=== PATIENT | male | born 1960 | race Caucasian/White ===

== ENCOUNTER 2021-02-10 21:09 | Observation (INO) ==
[2021-02-11] MEDS ORDERED: Acetaminophen 325 MG TABLET PO PRN (01:51)
[2021-02-11] MEDS ORDERED: Ondansetron 4 MG/2 ML VIAL IVP PRN (01:51)
[2021-02-11] MEDS ORDERED: Naloxone 0.4 MG/ML INJ IVP PRN (01:51)
[2021-02-11] MEDS ORDERED: Melatonin 3 MG TABLET PO PRN (01:51)
[2021-02-11] MEDS ORDERED: Pantoprazole 40 MG VIAL IVP ONE (01:53)
[2021-02-11] MEDS ORDERED: Furosemide 20 MG/2 ML VIAL IVP ONE (01:53)
[2021-02-11] MEDS ORDERED: *HR* Dextrose 50 % in Water (Vial) 50 ML VIAL IVP PRN (01:58)
[2021-02-11] MEDS ORDERED: Dextrose Gel 15 GM/37.5 ML TUBE PO PRN ×2 (01:58)
[2021-02-11] MEDS ORDERED: D5% in Water 1,000 ML IVC PRN (01:58)
[2021-02-11] MEDS ORDERED: 0.9 % Sodium Chloride 250 ML IVC SCH (02:00)
[2021-02-11 02:56] LABS: Basophils % 0.3 %; Eosinophils # 0.1 K/mcL (0.0-0.6); Eosinophils % 3.4 %; Hematocrit 22.1 % (37.5-50.1); Hemoglobin 6.8 g/dL (12.9-16.9); Immature Granulocytes % 0.3 % (0-4); Lymphocytes # 0.9 K/mcL (0.6-4.6); Lymphocytes % 25.9 %; Mean Corpuscular HGB Conc 30.8 g/dL (31.6-35.5); Mean Corpuscular Hemoglobin 31.1 pg (28.0-33.3); Mean Corpuscular Volume 100.9 fL (83.0-100.0); Mean Platelet Volume 9.4 fL (9.4-12.4); Monocytes # 0.4 K/mcL (0.0-1.3); Monocytes % 11.7 %; Neutrophils # 2.1 K/mcL (1.6-8.9); Platelet Count 150 K/mcL (140-400); Red Blood Count 2.19 M/mcL (4.19-5.50); Red Cell Distribution Width 15.3 % (11.5-14.5); Segmented Neutrophils % 58.4 %; White Blood Count 3.5 K/mcL (4.3-11.1)
[2021-02-11 02:58] LABS: Immature Reticulocyte % 29.2 % (11.0-38.0); Retculocyte # 0.15 M/mcL (0.05-0.10); Reticulocyte % 6.9 % (1.6-2.8)
[2021-02-11 03:11] LABS: Prothrombin Time 11.8 Seconds (9.4-12.1)
[2021-02-11 03:20] LABS: Albumin 2.9 g/dL (3.5-5.7); Albumin/Globulin Ratio 0.9 (1.1-2.2); Bilirubin,Total 0.6 mg/dL (0.3-1.0); Calcium 8.2 mg/dL (8.6-10.3); Globulin 3.3 g/dL (2.4-3.5); Magnesium 2.1 mg/dL (1.6-2.6); Potassium 4.2 mEq/L (3.5-5.1); Total Protein 6.2 g/dL (6.4-8.9)
[2021-02-11 03:40] LABS: Folate 8.1 ng/mL (3.0-16.0)
[2021-02-11] MEDS ORDERED: Cyanocobalamin (B-12) 1,000 MCG/ML VIAL SQ ONE (05:34)
[2021-02-11 06:04] LABS: Bilirubin,Urine Negative (Negative); Blood,Urine Trace (Negative); Clarity,Urine Clear (Clear); Color,Urine Colorless (Yellow); Glucose,Urine (UA) Normal (Normal); Ketones,Urine Negative (Negative); Leukocyte Esterase,Urine Negative (Negative); Nitrite,Urine Negative (Negative); Protein,Urine Negative (Neg-Trace); RBC,Urine 0-3 per hpf (0-3); Urobilinogen,Urine Normal (Normal); WBC,Urine 0-3 per hpf (0-3)
[2021-02-11 06:10] LABS: Protein/Creatinine Ratio,Urine 0.19 mg/mg (0.00-0.20); Sodium, Urine 119.3 mEq/L
[2021-02-11] MEDS: Insulin LISPRO 300 UNITS/3 ML VIAL SUBQ SCH ×4 (08:24→21:41)
[2021-02-11] MEDS ORDERED: Aspirin 81 MG TAB.CHEW PO SCH (09:00)
[2021-02-11 13:26] LABS: Hematocrit 24.1 % (37.5-50.1); Hemoglobin 7.6 g/dL (12.9-16.9)
[2021-02-11] MEDS ORDERED: Gadolinium Contrast Agent (WT Based) IV PRN (14:14)
[2021-02-11] MEDS: Pantoprazole 40 MG VIAL IVP SCH (18:05)
[2021-02-11] MEDS ORDERED: Insulin DETEMIR 100 UNIT/ML X5UNITS SUBQ SCH (21:00)
[2021-02-11] MEDS: Fluticasone Propionate Nasal 50 MCG/SPRAY BOTTLE NS SCH (21:40)
[2021-02-12 01:23] LABS: Basophils % 0.5 %; Eosinophils # 0.3 K/mcL (0.0-0.6); Eosinophils % 7.9 %; Hematocrit 23.7 % (37.5-50.1); Hemoglobin 7.5 g/dL (12.9-16.9); Immature Granulocytes % 0.3 % (0-4); Lymphocytes % 25.1 %; Mean Corpuscular HGB Conc 31.6 g/dL (31.6-35.5); Mean Corpuscular Hemoglobin 30.4 pg (28.0-33.3); Monocytes # 0.5 K/mcL (0.0-1.3); Platelet Count 152 K/mcL (140-400); Red Blood Count 2.47 M/mcL (4.19-5.50); Red Cell Distribution Width 15.1 % (11.5-14.5); Segmented Neutrophils % 53.2 %; White Blood Count 3.8 K/mcL (4.3-11.1)
[2021-02-12 01:44] LABS: BUN/Creatinine Ratio 19 (6-26); Blood Urea Nitrogen 26 mg/dL (8-23); Calcium 8.2 mg/dL (8.6-10.3); Carbon Dioxide 23 mEq/L (23-29); Chloride 105 mEq/L (98-107); Glucose 102 mg/dL (70-105); Osmolality,Calculated 283 (280-300); Sodium 134 mEq/L (136-145); eGFR For African Americans > 60 (> 60); eGFR For Non-African Americans 53 (> 60)
[2021-02-12] MEDS: Pantoprazole 40 MG VIAL IVP SCH ×2 (06:25→17:31)
[2021-02-12] MEDS: Insulin LISPRO 300 UNITS/3 ML VIAL SUBQ SCH ×4 (07:18→21:23)
[2021-02-12] MEDS: Venlafaxine XR (24 HR) 150 MG CAP.ER.24H PO SCH (08:14)
[2021-02-12] MEDS: BuPROPion SR (12 HR) 150 MG TABLET PO SCH (08:15)
[2021-02-12] MEDS: Fluticasone Propionate Nasal 50 MCG/SPRAY BOTTLE NS SCH ×2 (08:18→20:33)
[2021-02-12] MEDS ORDERED: Lidocaine -MPF 2% 5 ML VIAL ONE (09:42)
[2021-02-12] MEDS ORDERED: *HR* Propofol 200 MG/20 ML VIAL IVP ONE (09:42)
[2021-02-12] MEDS: Iron Sucrose Complex 200 MG in 0.9 % Sodium Chloride 100 ML IVPB SCH (14:20)
[2021-02-13] MEDS: Pantoprazole 40 MG VIAL IVP SCH (05:12)
[2021-02-13 06:09] VITALS: BP 104/58; PULSE 76; TEMP 98.1; O2SAT 95
[2021-02-13 07:26] LABS: BUN/Creatinine Ratio 15 (6-26); Blood Urea Nitrogen 21 mg/dL (8-23); Calcium 8.1 mg/dL (8.6-10.3); Carbon Dioxide 25 mEq/L (23-29); Chloride 108 mEq/L (98-107); Glucose 128 mg/dL (70-105); Osmolality,Calculated 287 (280-300); Potassium 4.4 mEq/L (3.5-5.1); Sodium 136 mEq/L (136-145); eGFR For African Americans > 60 (> 60); eGFR For Non-African Americans 51 (> 60)
[2021-02-13 07:30] LABS: Basophils % 0.5 %; Eosinophils # 0.2 K/mcL (0.0-0.6); Eosinophils % 4.3 %; Hematocrit 24.6 % (37.5-50.1); Hemoglobin 7.4 g/dL (12.9-16.9); Immature Granulocytes % 0.3 % (0-4); Lymphocytes # 0.7 K/mcL (0.6-4.6); Lymphocytes % 18.4 %; Mean Corpuscular HGB Conc 30.1 g/dL (31.6-35.5); Mean Corpuscular Hemoglobin 29.8 pg (28.0-33.3); Mean Corpuscular Volume 99.2 fL (83.0-100.0); Mean Platelet Volume 9.6 fL (9.4-12.4); Monocytes # 0.4 K/mcL (0.0-1.3); Monocytes % 9.6 %; Neutrophils # 2.5 K/mcL (1.6-8.9); Platelet Count 152 K/mcL (140-400); Red Blood Count 2.48 M/mcL (4.19-5.50); Segmented Neutrophils % 66.9 %; White Blood Count 3.8 K/mcL (4.3-11.1)
[2021-02-13] MEDS: Venlafaxine XR (24 HR) 150 MG CAP.ER.24H PO SCH (09:04)
[2021-02-13] MEDS: BuPROPion SR (12 HR) 150 MG TABLET PO SCH (09:04)
[2021-02-13] MEDS: Iron Sucrose Complex 200 MG in 0.9 % Sodium Chloride 100 ML IVPB SCH (09:05)
[2021-02-13] MEDS: Fluticasone Propionate Nasal 50 MCG/SPRAY BOTTLE NS SCH (09:05)
[2021-02-13] MEDS: Insulin LISPRO 300 UNITS/3 ML VIAL SUBQ SCH ×2 (09:06→12:16)
== END 2021-02-13 12:50 | disposition home or self-care (01) ==
LOC: 3ANU → SUATTDRO 02-11 01:14
PROVIDERS: ADMIT Pharmacist; ATTEND Internal Medicine
PROC: ENDOEBX (2021-02-12 11:55)

== ENCOUNTER 2021-05-10 12:44 | Inpatient (IN) ==
[2021-05-10] MEDS ORDERED: Naloxone 0.4 MG/ML INJ IVP PRN (14:57)
[2021-05-10] MEDS ORDERED: Melatonin 3 MG TABLET PO PRN (14:57)
[2021-05-10] MEDS ORDERED: *HR* Dextrose 50 % in Water (Syg) 50 ML SYRINGE IVP PRN (15:11)
[2021-05-10] MEDS ORDERED: Dextrose Gel 15 GM/37.5 ML TUBE PO PRN ×2 (15:11)
[2021-05-10] MEDS ORDERED: D5% in Water 1,000 ML IVC PRN (15:11)
[2021-05-10 16:20] LABS: Bilirubin,Urine Negative (Negative); Blood,Urine Trace (Negative); Clarity,Urine Turbid (Clear); Color,Urine Yellow (Yellow); Glucose,Urine (UA) Normal (Normal); Hyaline Casts,Urine Moderate per lpf (None Seen); Ketones,Urine Negative (Negative); Leukocyte Esterase,Urine Negative (Negative); Mucus,Urine Few per lpf (None-Few); Nitrite,Urine Negative (Negative); Protein,Urine 100 mg/dL (Neg-Trace); Renal Epithelial Cells,Urine Few per hpf (None-Few); Specific Gravity,Urine 1.019 (1.010-1.025); Squamous Epithelial Cell,Urine Moderate per hpf (None-Few); Transitional Epi Cells,Urine Few per hpf (None-Few); Urobilinogen,Urine Normal (Normal)
[2021-05-10 16:28] LABS: Basophils % 0.1 %; Hematocrit 28.4 % (37.5-50.1); Hemoglobin 8.3 g/dL (12.9-16.9); Immature Granulocytes % 1.1 % (0-4); Lymphocytes # 0.1 K/mcL (0.6-4.6); Lymphocytes % 0.4 %; Mean Corpuscular HGB Conc 29.2 g/dL (31.6-35.5); Mean Corpuscular Hemoglobin 28.4 pg (28.0-33.3); Mean Corpuscular Volume 97.3 fL (83.0-100.0); Mean Platelet Volume 10.5 fL (9.4-12.4); Monocytes # 0.1 K/mcL (0.0-1.3); Monocytes % 0.6 %; Neutrophils # 13.6 K/mcL (1.6-8.9); Platelet Count 201 K/mcL (140-400); Red Blood Count 2.92 M/mcL (4.19-5.50); Red Cell Distribution Width 15.4 % (11.5-14.5); Segmented Neutrophils % 97.8 %; White Blood Count 13.9 K/mcL (4.3-11.1)
[2021-05-10 16:37] LABS: INR 1.6; Prothrombin Time 18.3 Seconds (9.4-12.1)
[2021-05-10 16:39] LABS: Activated Partial Thrombo Time 37.5 Seconds (26.0-36.0)
[2021-05-10] MEDS: Sodium Bicarbonate 150 MEQ in D5% in Water 1,000 ML IVC SCH (16:43)
[2021-05-10 16:46] LABS: Rheumatoid Factor 117 IU/mL (Less than 14)
[2021-05-10 16:50] LABS: Protein/Creatinine Ratio,Urine 1.72 mg/mg (0.00-0.20)
[2021-05-10 16:56] LABS: Platelet Estimate Normal (Normal); Toxic Granulation Present (Not Present)
[2021-05-10 17:05] LABS: Folate 6.3 ng/mL (3.0-16.0)
[2021-05-10 17:06] LABS: Vitamin B12 348 pg/mL (250-1100)
[2021-05-10 17:11] LABS: Albumin 3.1 g/dL (3.5-5.7); Albumin/Globulin Ratio 0.8 (1.1-2.2); Bilirubin,Total 1.7 mg/dL (0.3-1.0); Calcium 8.5 mg/dL (8.6-10.3); Globulin 3.8 g/dL (2.4-3.5); Phosphorous 9.7 mg/dL (2.7-4.5); Potassium 7.3 mEq/L (3.5-5.1); Total Protein 6.9 g/dL (6.4-8.9)
[2021-05-10] MEDS ORDERED: Insulin Human Regular 10 UNIT in 0.9 % Sodium Chloride 10 ML IV ONE ×2 (17:14→18:11)
[2021-05-10] MEDS ORDERED: *HR* Dextrose 50 % in Water (Vial) 50 ML VIAL IVP ONE (17:17)
[2021-05-10] MEDS ORDERED: Albuterol 2.5 MG/3 ML NEBULIZER IH ONE (17:29)
[2021-05-10] MEDS ORDERED: Albuterol 2.5 MG/3 ML NEBULIZER ONE (17:31)
[2021-05-10] MEDS ORDERED: *HR* Heparin 10,000 UNIT/10 ML VIAL IV PRN (17:46)
[2021-05-10] MEDS ORDERED: 0.9 % Sodium Chloride 250 ML IVC PRN (17:46)
[2021-05-10] MEDS ORDERED: 0.9 % Sodium Chloride 1,000 ML PRIME SCH (18:00)
[2021-05-10 18:41] LABS: Hepatitis B Surface Antibody < 3.10 mIU/mL
[2021-05-10 19:21] LABS: Hepatitis B Core IgM Nonreactive (Nonreactive)
[2021-05-10 19:22] LABS: Hepatitis A Antibody IgM Nonreactive (Nonreactive); Hepatitis C Virus Antibody Nonreactive (Nonreactive)
[2021-05-10] MEDS ORDERED: Albumin 25% 12.5gm/50mL 12.5 GM/50 ML IV.SOLN IVPB ONE (19:30)
[2021-05-10] MEDS: Insulin LISPRO 300 UNITS/3 ML VIAL SUBQ SCH (19:35)
[2021-05-10 19:47] LABS: Complement C3 146 mg/dL (87-200)
[2021-05-10] MEDS: Norepinephrine 4 MG/254 ML IV.SOLN IVC SCH (20:12)
[2021-05-10 20:21] LABS: Hepatitis B Surface Antigen Nonreactive (Nonreactive)
[2021-05-10 20:45] LABS: Calcium 8.2 mg/dL (8.6-10.3); Potassium 5.2 mEq/L (3.5-5.1); Troponin I 0.03 ng/mL (< 0.04)
[2021-05-10] MEDS ORDERED: *HR* Dextrose 50 % in Water (Syg) 50 ML SYRINGE IVP ONE (22:04)
[2021-05-10] MEDS ORDERED: *HR* Amiodarone Premix 360 MG/200 ML BAG IVC ONE (22:04)
[2021-05-10] MEDS ORDERED: *HR* Amiodarone 450 MG/9 ML VIAL IVC ONE (22:04)
[2021-05-10] MEDS: Insulin DETEMIR 100 UNIT/ML X5UNITS SUBQ SCH (23:55)
[2021-05-11 03:40] LABS: Basophils % 0.3 %; Hematocrit 20.3 % (37.5-50.1); Immature Granulocytes % 0.8 % (0-4); Lymphocytes % 0.5 %; Mean Corpuscular HGB Conc 31.5 g/dL (31.6-35.5); Mean Corpuscular Hemoglobin 28.8 pg (28.0-33.3); Mean Corpuscular Volume 91.4 fL (83.0-100.0); Mean Platelet Volume 10.1 fL (9.4-12.4); Monocytes # 0.1 K/mcL (0.0-1.3); Monocytes % 1.1 %; Neutrophils # 7.3 K/mcL (1.6-8.9); Platelet Count 115 K/mcL (140-400); Red Blood Count 2.22 M/mcL (4.19-5.50); Red Cell Distribution Width 15.2 % (11.5-14.5); Segmented Neutrophils % 97.3 %; White Blood Count 7.5 K/mcL (4.3-11.1)
[2021-05-11 03:43] LABS: Hemoglobin 6.4 g/dL (12.9-16.9)
[2021-05-11 04:00] LABS: Calcium 7.8 mg/dL (8.6-10.3); Magnesium 1.9 mg/dL (1.6-2.6); Phosphorous 6.6 mg/dL (2.7-4.5); Potassium 5.6 mEq/L (3.5-5.1)
[2021-05-11 04:33] LABS: Estimated Average Glucose 94 mg/dl; Hemoglobin A1C 4.9 %
[2021-05-11] MEDS ORDERED: 0.9 % Sodium Chloride 250 ML IVC SCH (05:00)
[2021-05-11 05:54] LABS: INR 1.7; Prothrombin Time 19.4 Seconds (9.4-12.1)
[2021-05-11 05:58] LABS: Albumin 2.7 g/dL (3.5-5.7); Albumin/Globulin Ratio 0.9 (1.1-2.2); Bilirubin,Direct 0.8 mg/dL (0.0-0.2); Bilirubin,Indirect 0.6 mg/dL (0.0-1.0); Bilirubin,Total 1.4 mg/dL (0.3-1.0); Globulin 3.1 g/dL (2.4-3.5); Total Protein 5.8 g/dL (6.4-8.9)
[2021-05-11] MEDS ORDERED: *HR* Heparin 10,000 UNIT/10 ML VIAL IV PRN (08:16)
[2021-05-11] MEDS: Insulin LISPRO 300 UNITS/3 ML VIAL SUBQ SCH ×3 (08:16→15:50)
[2021-05-11] MEDS ORDERED: 0.9 % Sodium Chloride 250 ML IVC PRN (08:16)
[2021-05-11] MEDS: Ondansetron 4 MG/2 ML VIAL IVP PRN (08:17)
[2021-05-11] MEDS: Venlafaxine XR (24 HR) 150 MG CAP.ER.24H PO SCH (09:55)
[2021-05-11] MEDS: Sodium Bicarbonate 150 MEQ in D5% in Water 1,000 ML IVC SCH (09:56)
[2021-05-11] MEDS ORDERED: 0.9 % Sodium Chloride 500 ML IVC ONE (10:36)
[2021-05-11] MEDS ORDERED: 0.9 % Sodium Chloride 500 ML IVC SCH (10:45)
[2021-05-11] MEDS: Albumin Human 5% 25 GM/500 ML IV.SOLN IVPB SCH ×2 (11:59→20:32)
[2021-05-11] MEDS: Norepinephrine 4 MG/254 ML IV.SOLN IVC SCH (14:04)
[2021-05-11 17:07] LABS: Hematocrit 21.8 % (37.5-50.1); Hemoglobin 6.9 g/dL (12.9-16.9)
[2021-05-11] MEDS: *HR* Heparin 5,000 UNIT/ML VIAL SQ SCH (17:07)
[2021-05-11] MEDS: Insulin DETEMIR 100 UNIT/ML X5UNITS SUBQ SCH (20:34)
[2021-05-12] MEDS: Sodium Bicarbonate 150 MEQ in D5% in Water 1,000 ML IVC SCH (00:27)
[2021-05-12] MEDS: Albumin Human 5% 25 GM/500 ML IV.SOLN IVPB SCH (03:46)
[2021-05-12] MEDS: Norepinephrine 4 MG/254 ML IV.SOLN IVC SCH ×3 (04:09→22:07)
[2021-05-12 04:13] LABS: Hematocrit 21.4 % (37.5-50.1); Hemoglobin 6.8 g/dL (12.9-16.9); Immature Granulocytes % 1.1 % (0-4); Immature Platelets 1.9 % (1.1-6.1); Lymphocytes # 0.1 K/mcL (0.6-4.6); Lymphocytes % 1.1 %; Mean Corpuscular HGB Conc 31.8 g/dL (31.6-35.5); Mean Corpuscular Hemoglobin 28.5 pg (28.0-33.3); Mean Corpuscular Volume 89.5 fL (83.0-100.0); Mean Platelet Volume 10.6 fL (9.4-12.4); Monocytes # 0.2 K/mcL (0.0-1.3); Monocytes % 4.3 %; Neutrophils # 5.1 K/mcL (1.6-8.9); Red Blood Count 2.39 M/mcL (4.19-5.50); Red Cell Distribution Width 15.6 % (11.5-14.5); Segmented Neutrophils % 93.5 %; White Blood Count 5.4 K/mcL (4.3-11.1)
[2021-05-12 04:31] LABS: Calcium 7.9 mg/dL (8.6-10.3); Potassium 4.3 mEq/L (3.5-5.1); Uric Acid 7.4 mg/dL (2.3-7.6)
[2021-05-12 04:37] LABS: Anisocytosis 1+ (Not Present); Platelet Count 69 K/mcL (140-400); Platelet Estimate Slight Decrease (Normal)
[2021-05-12] MEDS: *HR* Heparin 5,000 UNIT/ML VIAL SQ SCH (06:20)
[2021-05-12] MEDS: Insulin LISPRO 300 UNITS/3 ML VIAL SUBQ SCH ×3 (07:44→16:44)
[2021-05-12] MEDS: Venlafaxine XR (24 HR) 150 MG CAP.ER.24H PO SCH (07:48)
[2021-05-12] MEDS ORDERED: 0.9 % Sodium Chloride 1,000 ML IV ONE (11:29)
[2021-05-12] MEDS ORDERED: 0.9 % Sodium Chloride 250 ML ONE (12:53)
[2021-05-12 13:08] LABS: Iron 149 mcg/dL (65-175)
[2021-05-12] MEDS: Insulin DETEMIR 100 UNIT/ML X5UNITS SUBQ SCH (19:59)
[2021-05-13 04:06] LABS: Hemoglobin 6.4 g/dL (12.9-16.9)
[2021-05-13 04:08] LABS: Hematocrit 19.5 % (37.5-50.1); Immature Granulocytes % 4.4 % (0-4); Lymphocytes # 0.1 K/mcL (0.6-4.6); Lymphocytes % 1.5 %; Mean Corpuscular HGB Conc 32.8 g/dL (31.6-35.5); Mean Corpuscular Hemoglobin 29.1 pg (28.0-33.3); Mean Corpuscular Volume 88.6 fL (83.0-100.0); Mean Platelet Volume 11.4 fL (9.4-12.4); Monocytes # 0.3 K/mcL (0.0-1.3); Monocytes % 5.4 %; Neutrophils # 4.1 K/mcL (1.6-8.9); Red Cell Distribution Width 15.8 % (11.5-14.5); Segmented Neutrophils % 88.7 %; White Blood Count 4.6 K/mcL (4.3-11.1)
[2021-05-13 04:22] LABS: Platelet Count 27 K/mcL (140-400)
[2021-05-13 04:27] LABS: Calcium 7.8 mg/dL (8.6-10.3); Potassium 4.3 mEq/L (3.5-5.1)
[2021-05-13] MEDS ORDERED: 0.9 % Sodium Chloride 250 ML IVC SCH (05:45)
[2021-05-13] MEDS: Norepinephrine 4 MG/254 ML IV.SOLN IVC SCH (06:49)
[2021-05-13] MEDS: Insulin LISPRO 300 UNITS/3 ML VIAL SUBQ SCH ×3 (08:50→18:43)
[2021-05-13] MEDS: Venlafaxine XR (24 HR) 150 MG CAP.ER.24H PO SCH (08:53)
[2021-05-13] MEDS: Ondansetron 4 MG/2 ML VIAL IVP PRN (08:55)
[2021-05-13] MEDS ORDERED: *HR* Heparin 10,000 UNIT/10 ML VIAL IV PRN (10:59)
[2021-05-13] MEDS ORDERED: 0.9 % Sodium Chloride 250 ML IVC PRN (10:59)
[2021-05-13] MEDS ORDERED: 0.9 % Sodium Chloride 1,000 ML PRIME SCH (11:00)
[2021-05-13] MEDS: Budesonide/Formoterol 160/4.5 1 PUFF INH IH SCH ×2 (16:23→21:33)
[2021-05-13 16:58] LABS: Hematocrit 21.3 % (37.5-50.1); Hemoglobin 6.9 g/dL (12.9-16.9); Lymphocytes % 1.2 %; Mean Corpuscular HGB Conc 32.4 g/dL (31.6-35.5); Mean Corpuscular Hemoglobin 28.8 pg (28.0-33.3); Mean Corpuscular Volume 88.8 fL (83.0-100.0)
[2021-05-13 17:00] LABS: Eosinophils % 0.2 %; Immature Platelets 3.5 % (1.1-6.1); Immature Reticulocyte % 9.4 % (11.0-38.0); Lymphocytes # 0.1 K/mcL (0.6-4.6); Mean Platelet Volume 10.3 fL (9.4-12.4); Monocytes # 0.3 K/mcL (0.0-1.3); Monocytes % 5.3 %; Red Cell Distribution Width 15.4 % (11.5-14.5); Retculocyte # 0.02 M/mcL (0.05-0.10); Reticulocyte % 0.8 % (1.6-2.8); Segmented Neutrophils % 92.3 %; White Blood Count 4.9 K/mcL (4.3-11.1)
[2021-05-13 17:02] LABS: Neutrophils # 4.5 K/mcL (1.6-8.9)
[2021-05-13 17:35] LABS: Prothrombin Time 21.9 Seconds (9.4-12.1)
[2021-05-13 17:37] LABS: Activated Partial Thrombo Time 43.4 Seconds (26.0-36.0)
[2021-05-13 17:45] LABS: Albumin 2.9 g/dL (3.5-5.7); Bilirubin,Direct 2.1 mg/dL (0.0-0.2); Bilirubin,Indirect 1.6 mg/dL (0.0-1.0); Bilirubin,Total 3.7 mg/dL (0.3-1.0); Globulin 2.8 g/dL (2.4-3.5); Total Protein 5.7 g/dL (6.4-8.9)
[2021-05-13 17:54] LABS: Platelet Estimate Marked Decrease (Normal)
[2021-05-13 17:59] LABS: Platelet Count 29 K/mcL (140-400)
[2021-05-13 18:03] VITALS: O2SAT 100
[2021-05-13 18:43] VITALS: TEMP 97.8
[2021-05-13 20:01] VITALS: PULSE 92
[2021-05-13] MEDS: Insulin DETEMIR 100 UNIT/ML X5UNITS SUBQ SCH (20:52)
[2021-05-13 21:20] VITALS: BP 120/62
[2021-05-15 08:17] LABS: % Iron Saturation 59 % (20-55); Transferrin 181 mg/dL (200-400)
== END 2021-05-13 22:05 | disposition short-term general hospital (02) | DRG 469 ==
LOC: 2NNU 14:16 → ICNU 22:46
PROVIDERS: ADMIT Hospitalist; ATTEND Pharmacist

== ENCOUNTER 2021-06-17 20:00 | Observation (INO) ==
[2021-06-18] MEDS ORDERED: *HR* Promethazine 25 MG/ML VIAL IM PRN (03:17)
[2021-06-18] MEDS ORDERED: Naloxone 0.4 MG/ML INJ IVP PRN (03:17)
[2021-06-18] MEDS ORDERED: Ondansetron 4 MG/2 ML VIAL IVP PRN (03:17)
[2021-06-18] MEDS ORDERED: Melatonin 3 MG TABLET PO PRN (03:17)
[2021-06-18] MEDS ORDERED: Acetaminophen 325 MG TABLET PO PRN (03:17)
[2021-06-18] MEDS ORDERED: D5% in Water 1,000 ML IVC PRN (03:45)
[2021-06-18] MEDS ORDERED: *HR* Dextrose 50 % in Water (Syg) 50 ML SYRINGE IVP PRN (03:45)
[2021-06-18] MEDS ORDERED: Dextrose Gel 15 GM/37.5 ML TUBE PO PRN ×2 (03:45)
[2021-06-18 04:04] LABS: Adenovirus Not Detected (Not Detect); Bordetella Pertussis Not Detected (Not Detect); Chlamydophila pneumoniae Not Detected (Not Detect); Coronavirus 229E Not Detected (Not Detect); Coronavirus HKU1 Not Detected (Not Detect); Coronavirus NL63 Not Detected (Not Detect); Coronavirus OC43 DETECTED (Not Detect); Human Metapneumovirus Not Detected (Not Detect); Human Rhinovirus/Enterovirus Not Detected (Not Detect); Influenza A Subtype 2009 H1 Not Detected (Not Detect); Influenza B Not Detected (Not Detect); Mycoplasma pneumoniae Not Detected (Not Detect); Parainfluenza Virus 1 Not Detected (Not Detect); Parainfluenza Virus 2 Not Detected (Not Detect); Parainfluenza Virus 3 Not Detected (Not Detect); Parainfluenza Virus 4 Not Detected (Not Detect); Respiratory Syncytial Virus Not Detected (Not Detect); SARS-CoV-2 Not Detected (Not Detect)
[2021-06-18] MEDS: 0.9 % Sodium Chloride 1,000 ML IVC SCH ×2 (04:54→22:57)
[2021-06-18 05:03] LABS: Eosinophils % 0.9 %; Immature Granulocytes % 0.2 % (0-4); Lymphocytes # 0.5 K/mcL (0.6-4.6); Lymphocytes % 10.6 %; Mean Corpuscular HGB Conc 31.6 g/dL (31.6-35.5); Mean Corpuscular Hemoglobin 32.1 pg (28.0-33.3); Monocytes # 0.2 K/mcL (0.0-1.3); Monocytes % 5.5 %; Neutrophils # 3.6 K/mcL (1.6-8.9); Red Blood Count 1.87 M/mcL (4.19-5.50); Red Cell Distribution Width 22.6 % (11.5-14.5); Segmented Neutrophils % 82.8 %; White Blood Count 4.3 K/mcL (4.3-11.1)
[2021-06-18] MEDS: *HR* Heparin 5,000 UNIT/ML VIAL SQ SCH ×2 (05:14→15:03)
[2021-06-18 05:16] LABS: INR 1.4; Prothrombin Time 15.4 Seconds (9.4-12.1)
[2021-06-18 05:32] LABS: Albumin 2.3 g/dL (3.5-5.7); Albumin/Globulin Ratio 0.7 (1.1-2.2); Calcium 7.3 mg/dL (8.6-10.3); Globulin 3.4 g/dL (2.4-3.5); Total Protein 5.7 g/dL (6.4-8.9)
[2021-06-18 06:07] LABS: Mean Corpuscular Volume 101.6 fL (83.0-100.0); Platelet Count 67 K/mcL (140-400)
[2021-06-18] MEDS ORDERED: 0.9 % Sodium Chloride 250 ML IVC SCH (06:15)
[2021-06-18] MEDS: Insulin LISPRO 300 UNITS/3 ML VIAL SUBQ SCH ×3 (07:17→18:12)
[2021-06-18] MEDS ORDERED: Heparin 1,000 UNITS/500 mL 500 ML ONE (09:25)
[2021-06-18 11:06] LABS: Hepatitis B Surface Antibody 3.54 mIU/mL
[2021-06-18 11:17] LABS: Hepatitis B Surface Antigen Nonreactive (Nonreactive)
[2021-06-18] MEDS ORDERED: Pantoprazole 40 MG VIAL IVP ONE (20:41)
[2021-06-18] MEDS ORDERED: diazePAM 10 MG/2 ML SYRINGE IVP ONE (23:14)
[2021-06-19] MEDS: Insulin LISPRO 300 UNITS/3 ML VIAL SUBQ SCH ×2 (01:10→06:47)
[2021-06-19 04:50] VITALS: O2SAT 100
[2021-06-19 11:21] VITALS: BP 118/70; PULSE 99; TEMP 98
== END 2021-06-19 12:21 | disposition hospice, home (50) ==
LOC: 2ANU → SUATTDRO 06-18 00:40
PROVIDERS: ADMIT Internal Medicine; ATTEND Internal Medicine